=== PATIENT | female | born 1950 | race Caucasian/White ===

== ENCOUNTER → 2018-08-26 | Outpatient (CLI) | payer MEDICARE, BC, OTHER ==
[~2018-08-26] MED LIST: ASPIR 8181 MG PO; ASPIRIN325 PO; COLACE100 MG PO; HYDROCODONE-AP1 EAC6 PO; LIPITOR10 MG PO; MULTIGEN CAPLET1 CAP PO; MULTIPLE VITAM1 EAC1 PO; NORCO 5-325 TA1 EACH PO; OMEPRAZOLE40 MG PO; SYNTHROID100 MCG PO; TRAMADOL 50 MG50 MG PO; TRANSDERM-SCO1 PATC1 TRANSDERM; TYLENOL ARTHRI650 MG PO; XARELTO10 MG PO; ZOFRAN ODT4 MG DISSOLVE
== END ==
LOC: M.NUC 08-20 12:19
DX: M25.562 Pain in left knee (principal); M79.89 Other specified soft tissue disorders; E03.9 Hypothyroidism, unspecified; K21.9 Gastro-esophageal reflux disease without esophagitis; Z88.0 Allergy status to penicillin; Z88.8 Allergy status to other drugs, medicaments and biological substances

== ENCOUNTER → 2020-04-08 | Outpatient (CLI) | payer MEDICARE, BC | LOC: M.MRI 13:12 | DX: M47.27 Other spondylosis with radiculopathy, lumbosacral region (principal); M48.07 Spinal stenosis, lumbosacral region; M25.78 Osteophyte, vertebrae; M51.16 Intervertebral disc disorders with radiculopathy, lumbar region ==